=== PATIENT | female | born 1960 ===

== ENCOUNTER 2017-04-09 15:51 | Emergency (ER) | payer MEDICARE ==
--- NOTE | 2017-04-09 16:03 | UC ---
Complaint Female HPI - HPI Summary HPI Summary: 57 YEAR OLD FEMALE PRESENTS WITH COMPLAINS OF RLQ PAIN AND HEMATURIA. - History Of Current Complaint Stated Complaint: BLOOD IN URINE Time Seen by Provider: 04/09/17 16:03 Hx Obtained From: Patient Onset/Duration: Sudden Onset Severity Initially: Moderate Severity Currently: Moderate Pain Scale Used: 0-10 Numeric - 5 - Allergies/Home Medications Allergies/Adverse Reactions: Allergies Allergy/AdvReac Type Severity Reaction Status Date / Time No Known Allergies Allergy Verified 04/09/17 16:11 Home Medications: Home Medications Acetaminophen TAB* [Tylenol TAB*] 650 mg PO Q4H PRN 04/09/17 [History Confirmed 04/09/17] Ibuprofen [Advil] 400 mg PO Q6H PRN 04/09/17 [History Confirmed 04/09/17] PMH/Surg Hx/FS Hx/Imm Hx Previously Healthy: Yes Review of Systems Constitutional: Negative Skin: Negative Eyes: Negative ENT: Negative Respiratory: Negative Cardiovascular: Negative Gastrointestinal: Negative Genitourinary: Hematuria, Frequency, Urgency Motor: Negative Neurovascular: Negative Musculoskeletal: Negative Neurological: Negative Psychological: Negative All Other Systems Reviewed And Are Negative: Yes Physical Exam Triage Information Reviewed: Yes Eye Exam: Normal ENT Exam: Normal Dental Exam: Normal Neck exam: Normal Neck: Positive: 1 Respiratory Exam: Normal Cardiovascular Exam: Normal Abdominal Exam: Normal Abdomen Description: Positive: Other: - RLQ PAIN Musculoskeletal Exam: Normal Neurological Exam: Normal Psychological Exam: Normal Skin Exam: Normal Complaint Female Dx - Differential Dx/Diagnosis Provider Diagnoses: HEMATURIA. RLQ PAIN Discharge - Discharge Plan Condition: Stable Disposition: HOME Prescriptions: Ciprofloxacin TAB* [Cipro 500 MG TAB*] 500 mg PO BID #14 tab Patient Education Materials: Hematuria (ED) Referrals: No Primary Care Phys,NOPCP [Primary Care Provider] - Additional Instructions: PLEASE GO TO ER FOR HEMATURIA AND RLQ PAIN.
--- NOTE | 2017-04-10 16:43 | ED ---
Progress - Progress Note Progress Note: NO CHANGE. Course/Dx - Diagnoses Provider Diagnoses: UTI (urinary tract infection)
--- NOTE | 2017-04-11 17:04 | UC ---
Progress - Progress Note Progress Note: NO CHANGE. - Results/Orders Results/Orders: notify pt bug resistent to cipro keflex 500mg twice daily prescribed (ERxed)
== END 2017-04-09 17:03 | disposition home or self-care (01) ==
LOC: UCEAST 15:51
DX: R31.9 Hematuria, unspecified (principal); R10.31 Right lower quadrant pain
CPT/HCPCS: 81003; 87077; 87086; 87186; 99202; G0463